=== PATIENT | female | born 1960 | race Caucasian/White ===

== ENCOUNTER 2018-12-19 20:36 | Inpatient (IN) | payer BC, MEDICAID ==
[~2018-12-19] VITALS: Ht 167.6 cm; Wt 54.5 kg
[2018-12-19] MEDS ORDERED: vancomycin/NS 1 GM ADD-VANTAGE 250 ML IV ONE (21:05)
[2018-12-19] MEDS ORDERED: normal saline 1000ML IV soln IVB ONE (21:55)
[2018-12-19 21:56] LABS: PARTIAL THROMBOPLASTIN TIME 28 SECONDS (22-32)
[2018-12-19 22:03] LABS: BASOPHILS # (AUTO) 0.1 X10'3 (0-0.2); BASOPHILS % (AUTO) 0.7 % (0-1); EOSINOPHILS % (AUTO) 0.1 % (0-6); HEMATOCRIT 36.5 % (35.0-45.0); HEMOGLOBIN 11.7 g/dl (12.0-16.0); LYMPHOCYTES # (AUTO) 1.5 X10'3 (1.1-4.8); LYMPHOCYTES % (AUTO) 10.2 % (21-51); MEAN CORPUSCULAR HEMOGLOBIN 27.3 PG (27.0-31.0); MEAN CORPUSCULAR HGB CONC 32.1 g/dL (33.0-36.5); MEAN CORPUSCULAR VOLUME 84.9 FL (78-98); MEAN PLATELET VOLUME 8.4 FL (7.4-10.4); MONOCYTES # (AUTO) 0.7 X10'3 (0-0.9); MONOCYTES % (AUTO) 4.7 % (2-12); NEUTROPHILS # (AUTO) 12.6 X10'3 (1.8-7.7); NEUTROPHILS % (AUTO) 84.3 % (42-75); PLATELET COUNT 238 X10'3 (140-440); RED CELL DISTRIBUTION WIDTH 14.6 % (11.5-14.5)
[2018-12-19 22:09] LABS: ALANINE AMINOTRANSFERASE 22 U/L (12-78); ALBUMIN 2.1 G/DL (3.4-5.0); ALBUMIN/GLOBULIN RATIO 0.4 (1.1-1.5); ALKALINE PHOSPHATASE 97 IU/L (46-116); ANION GAP 13 (8-16); ASPARTATE AMINO TRANSFERASE 23 U/L (10-37); BILIRUBIN,TOTAL 0.3 MG/DL (0.1-1.0); BLOOD UREA NITROGEN 18 MG/DL (7-18); CALCIUM 11.1 MG/DL (8.5-10.1); CHLORIDE 107 MMOL/L (99-107); CREATININE 0.82 MG/DL (0.40-0.90); GLUCOSE 102 MG/DL (70-104); MAGNESIUM 1.5 MG/DL (1.5-2.4); POTASSIUM 4.4 MMOL/L (3.5-5.1); SODIUM 140 MMOL/L (135-145); TOTAL CARBON DIOXIDE 19.6 MMOL/L (24-32); TOTAL PROTEIN 7.8 G/DL (6.4-8.2); eGFR 72 ML/MIN
[2018-12-19 22:38] LABS: CLARITY,URINE CLOUDY (Clear); COLOR,URINE YELLOW (Yellow); GLUCOSE, URINE NEGATIVE (Neg); KETONES,URINE NEGATIVE (Neg); LEUKOCYTE ESTERASE ,URINE LARGE (Neg); NITRITES, URINE POSITIVE (Neg); OCCULT BLOOD,URINE LARGE (Neg); PROTEIN,URINE 30 mg/dl (Neg); UROBILINOGEN,URINE 0.2 E.U/dL (0.2-1.0)
[2018-12-19 22:40] LABS: UA COLLECTION TYPE FOLEY CATH
[2018-12-19 22:49] LABS: BACTERIA,URINE 4+ /HPF (Neg); MUCUS STRANDS NONE SEEN /LPF (Neg); SQUAMOUS EPITHELIAL CELL,UR NONE SEEN /LPF (FEW); WBC,URINE TNTC /HPF (0-4)
[2018-12-19 22:50] LABS: WBC CLUMPS,URINE MODERATE /HPF (NEGATIVE)
[2018-12-19] MEDS ORDERED: LIDOcaine 1% 30ml preserv. free vial IJ STA (23:02)
[2018-12-19] MEDS ORDERED: acetaminophen 325mg tablet PO PRN ×2 (23:40)
[2018-12-19] MEDS ORDERED: HYDROcodone/acetaminophen 10/325mg tab PO PRN (23:40)
[2018-12-19] MEDS ORDERED: normal saline 1000ml 1,000 ML IV SCH (23:40)
[2018-12-19] MEDS ORDERED: HYDROcodone/acetaminophen 5mg/325mg tablet PO PRN (23:40)
[2018-12-19] MEDS ORDERED: ondansetron/PF 4mg/2ml inj IV PRN (23:40)
[2018-12-19] MEDS ORDERED: mag hydrox/Alum hydrox/simeth 30ml oral suspension PO PRN (23:40)
[2018-12-19] MEDS ORDERED: magnesium hydroxide 30ml (MOM) UD suspension PO PRN (23:40)
[2018-12-20] VITALS (22 sets, daily range): BP systolic 71–143; BP diastolic 44–89
--- NOTE | 2018-12-20 00:43 | NUR ---
Patient in room . I have received report from Nikko DOUGLASS and had the opportunity to ask questions and assume patient care.
[2018-12-20] MEDS ORDERED: normal saline 1000ml 1,000 ML IV ONE (01:10)
--- NOTE | 2018-12-20 01:30 | NUR ---
Patient arrived to room 3014B from ER via gurney. All belongings on person. Patient oriented to room, call light, plan of care and all questions answered. 2 RN skin check done and tele monitor #[id number] put on. Vital signs stable with BP of 143/89. Will continue to monitor.
[2018-12-20] MEDS: CefTRIAXone/D5W-Rocephin 1gm 50 ML IV SCH ×2 (01:49→07:21)
[2018-12-20] MEDS ORDERED: LORazepam 2 mg/ml vial IV ONE (03:45)
--- NOTE | 2018-12-20 05:25 | NUR ---
Patient BP 76/48. BP called to Dr. Zamarripa. NS 500cc bolus ordered. Will continue to monitor Addendum: 12/20/18 at 0633 by Lauren Angiuano RN After bolus BP 83/57
[2018-12-20] MEDS ORDERED: normal saline 500ml IV soln 500 ML IV ONE (05:30)
--- NOTE | 2018-12-20 06:00 | NUR ---
Problems reprioritized. Patient report given, questions answered & plan of care reviewed with Shandra DOUGLASS.
--- NOTE | 2018-12-20 06:28 | NUR ---
May AUTOMATION QTP TESTER at bedside due to patient's decreased BP; pt asymptomatic. Patients baseline BP around 80's systolic. Orders for Midodrine. Will continue to monitor.
[2018-12-20] MEDS: midodrine 5mg tablet PO SCH ×2 (07:15→19:14)
[2018-12-20] MEDS: enoxaparin 40mg/0.4ml syringe SUBCUT SCH (07:19)
[2018-12-20 08:01] LABS: BASOPHILS % (AUTO) 0.2 % (0-1); EOSINOPHILS % (AUTO) 0.1 % (0-6); HEMATOCRIT 29.1 % (35.0-45.0); HEMOGLOBIN 9.5 g/dl (12.0-16.0); LYMPHOCYTES # (AUTO) 0.6 X10'3 (1.1-4.8); LYMPHOCYTES % (AUTO) 4.9 % (21-51); MEAN CORPUSCULAR HEMOGLOBIN 27.8 PG (27.0-31.0); MEAN CORPUSCULAR HGB CONC 32.7 g/dL (33.0-36.5); MEAN CORPUSCULAR VOLUME 84.9 FL (78-98); MEAN PLATELET VOLUME 7.7 FL (7.4-10.4); MONOCYTES # (AUTO) 0.5 X10'3 (0-0.9); MONOCYTES % (AUTO) 4.3 % (2-12); NEUTROPHILS # (AUTO) 10.7 X10'3 (1.8-7.7); NEUTROPHILS % (AUTO) 90.5 % (42-75); PLATELET COUNT 191 X10'3 (140-440); RED BLOOD COUNT 3.43 X10'6 (4.20-5.60); RED CELL DISTRIBUTION WIDTH 14.7 % (11.5-14.5); WHITE BLOOD COUNT 11.8 X10'3 (4.5-11.0)
[2018-12-20 08:09] LABS: ANION GAP 13 (8-16); CHLORIDE 117 MMOL/L (99-107); SODIUM 151 MMOL/L (135-145); TOTAL CARBON DIOXIDE 20.7 MMOL/L (24-32)
[2018-12-20 08:12] LABS: ALBUMIN 1.7 G/DL (3.4-5.0); BLOOD UREA NITROGEN 12 MG/DL (7-18); BUN/CREATININE RATIO 21.8 (6.6-38.0); CALCIUM 8.5 MG/DL (8.5-10.1); CREATININE 0.55 MG/DL (0.40-0.90); GLUCOSE 88 MG/DL (70-104); eGFR > 90 ML/MIN
[2018-12-20 08:19] LABS: POTASSIUM 2.3 MMOL/L (3.5-5.1)
--- NOTE | 2018-12-20 08:28 | NUR ---
Jennifer Simeon for K2.3 this AM. No PRN Replacements ordered. Addendum: 12/20/18 at 0856 by Shandra Staples RN Dr. Simeon returned call. RN ordered potassium replacement per MD request.
[2018-12-20] MEDS ORDERED: potassium Cl 20 mEq SR tablet PO PRN ×2 (08:50)
[2018-12-20] MEDS ORDERED: magnesium 4gm in 100ml NS 100 ML IV PRN (08:50)
[2018-12-20 09:04] LABS: MAGNESIUM 1.2 MG/DL (1.5-2.4)
[2018-12-20] MEDS: sodium chloride 0.45% 1,000 ML IV SCH ×2 (09:44→19:14)
[2018-12-20] MEDS: potassium CL 10mEq/100ml bag 100 ML IV PRN ×5 (09:47→14:00)
[2018-12-20] MEDS: magnesium Cl slow-release 64mg tablet PO PRN (11:52)
--- NOTE | 2018-12-20 13:19 | NUR ---
Pt admit with sepsis and UTI with low Riccardo of 10. Per physical assessment pt with skin tear to left soriano and PU to sacrum. Pt currently on regular diet documented to have refused breakfast. Pt seen at bedside reports low appetite. Pt provided with written and verbal protein education with RD contact information. Food preferences obtained and d/w dietary, see below. Pt declined additional protein at this time. Pt with colostomy with LBM 8/10. Will continue to follow. Recommendations: 1) Continue with regular diet 2) Monitor need for ONS 3) [place] food preferences: No beef, turkey, pork; chicken only; no scrambled eggs, hard boiled or omelette only 4) Encourage PO intake 5) Wt per rx Addendum: 12/20/18 at [address] Amended: Links added.
[2018-12-20 15:33] LABS: ALBUMIN 1.7 G/DL (3.4-5.0); BLOOD UREA NITROGEN 11 MG/DL (7-18); BUN/CREATININE RATIO 16.2 (6.6-38.0); CALCIUM 7.7 MG/DL (8.5-10.1); CHLORIDE 108 MMOL/L (99-107); CREATININE 0.68 MG/DL (0.40-0.90); GLUCOSE 77 MG/DL (70-104); POTASSIUM 3.8 MMOL/L (3.5-5.1); TOTAL CARBON DIOXIDE 19.6 MMOL/L (24-32); eGFR 89 ML/MIN
[2018-12-20 15:49] LABS: ANION GAP 12 (8-16); SODIUM 140 MMOL/L (135-145)
--- NOTE | 2018-12-20 15:59 | NUR ---
PAGER ID: [phone] MESSAGE: [id number] Juni. K 3.8 after 50mEq IV K replacement. Protocol is to administer 30 more mEq, please advise. Shandra Arshad Addendum: 12/20/18 at 1709 by Shandra Staples RN [id number] - no response by as of yet as to if he wants to continue with with K replacement for K level 3.8.
--- NOTE | 2018-12-20 17:16 | NUR ---
BP low this AM at shift change with SBP 70-80's and MAP <60. Only sx fatigue. May, MONORAIL CAR OPERATOR at bedside to see pt. Midodrine ordered and RN told to just watch pt. Pt placed on mobile. BP increased after Midodrine administered. SBP ranging >100 throughout the day. Na 151 this AM. s/p several liters of NS given since admission. IVF changed to 1/2 NS. Na later resulted 140. K2.3 this AM. Replaced with total of 50 mEq IV then checked K and level was 3.8. Protocol states to give [address] Simeon of current level and asked if he wanted to go ahead and administer the rest of the K. Currently awaiting response. Mag 1.2 this AM, replaced with PO Mag. Poor appetite noted. Pt is a quad, turned in bed q2h.
--- NOTE | 2018-12-20 18:15 | NUR ---
Patient in room PCU 3014. I have received report from Shandra DOUGLASS and had the opportunity to ask questions and assume patient care.
[2018-12-20] MEDS: lactobacillus rhamnosus 10,000 MMU CELLS/CAPSULE PO SCH (19:14)
[2018-12-20] MEDS: loperamide 2mg capsule PO PRN (21:15)
[2018-12-21 03:00] VITALS: BP 117/67
[2018-12-21] MEDS: sodium chloride 0.45% 1,000 ML IV SCH (05:21)
[2018-12-21 06:00] LABS: ALBUMIN 1.6 G/DL (3.4-5.0); ANION GAP 11 (8-16); BLOOD UREA NITROGEN 13 MG/DL (7-18); BUN/CREATININE RATIO 21.7 (6.6-38.0); CALCIUM 7.5 MG/DL (8.5-10.1); CHLORIDE 110 MMOL/L (99-107); GLUCOSE 72 MG/DL (70-104); SODIUM 141 MMOL/L (135-145); TOTAL CARBON DIOXIDE 19.6 MMOL/L (24-32); eGFR > 90 ML/MIN
[2018-12-21 06:03] LABS: POTASSIUM 2.7 MMOL/L (3.5-5.1)
[2018-12-21 06:11] LABS: BASOPHILS % (AUTO) 0.4 % (0-1); EOSINOPHILS # (AUTO) 0.2 X10'3 (0-0.9); HEMATOCRIT 28.7 % (35.0-45.0); HEMOGLOBIN 9.5 g/dl (12.0-16.0); LYMPHOCYTES # (AUTO) 1.5 X10'3 (1.1-4.8); LYMPHOCYTES % (AUTO) 16.7 % (21-51); MEAN CORPUSCULAR HGB CONC 33.2 g/dL (33.0-36.5); MEAN CORPUSCULAR VOLUME 84.5 FL (78-98); MEAN PLATELET VOLUME 8.2 FL (7.4-10.4); MONOCYTES # (AUTO) 0.7 X10'3 (0-0.9); MONOCYTES % (AUTO) 7.3 % (2-12); NEUTROPHILS # (AUTO) 6.6 X10'3 (1.8-7.7); NEUTROPHILS % (AUTO) 73.6 % (42-75); PLATELET COUNT 203 X10'3 (140-440); RED CELL DISTRIBUTION WIDTH 14.9 % (11.5-14.5)
--- NOTE | 2018-12-21 06:20 | NUR ---
Problems reprioritized. Patient report given, questions answered & plan of care reviewed with Elke DOUGLASS.
[2018-12-21 07:00] VITALS: BP 118/63
[2018-12-21] MEDS: CefTRIAXone/D5W-Rocephin 1gm 50 ML IV SCH (07:42)
[2018-12-21] MEDS: midodrine 5mg tablet PO SCH ×2 (07:42→19:13)
[2018-12-21] MEDS: enoxaparin 40mg/0.4ml syringe SUBCUT SCH (07:42)
[2018-12-21] MEDS: lactobacillus rhamnosus 10,000 MMU CELLS/CAPSULE PO SCH ×2 (07:42→19:13)
[2018-12-21] MEDS: potassium CL 10mEq/100ml bag 100 ML IV PRN ×8 (07:42→21:59)
[2018-12-21] MEDS: JUVEN Shake w/Arg/Glut/Ca2+Bmb (Juven 19.3gm) pkt 240ml PO SCH ×3 (08:34→18:00)
[2018-12-21] MEDS ORDERED: POTA20TA19 PO (12:18)
[2018-12-21] MEDS ORDERED: SERT50TA PO (12:19)
[2018-12-21] MEDS: magnesium Cl slow-release 64mg tablet PO PRN ×2 (12:27→19:21)
[2018-12-21] MEDS ORDERED: sertraline 50mg tablet PO ONE (12:55)
[2018-12-21] MEDS ORDERED: potassium Cl 20 mEq SR tablet PO ONE (12:55)
[2018-12-21 13:00] VITALS: BP 114/75
[2018-12-21 15:00] VITALS: BP 128/82
[2018-12-21] MEDS ORDERED: MULT-933 PO (17:33)
[2018-12-21] MEDS ORDERED: ASCO500C15 PO (17:33)
[2018-12-21] MEDS ORDERED: CHOL100046 PO (17:33)
--- NOTE | 2018-12-21 18:00 | NUR ---
Patient in room PCU 3014. I have received report from Elke DOUGLASS and had the opportunity to ask questions and assume patient care.
--- NOTE | 2018-12-21 18:12 | NUR ---
Problems reprioritized. Patient report given, questions answered & plan of care reviewed with Ofe DOUGLASS. Patient stable at transfer of care.
--- NOTE | 2018-12-21 18:47 | NUR ---
Patient in room PCU 3014. I have received report from Elke DOUGLASS and had the opportunity to ask questions and assume patient care.
[2018-12-21 19:00] VITALS: BP 137/79
[2018-12-21] MEDS: loperamide 2mg capsule PO PRN (19:32)
[2018-12-21 22:00] VITALS: BP 140/93
[2018-12-22 03:00] VITALS: BP 108/65
--- NOTE | 2018-12-22 04:30 | NUR ---
[place] documentation: I have reviewed and agree with all interventions, assessments performed and documented by Margarita DOUGLASS. [place] Medication Administration: For this medication-pass time frame, all medication were reviewed, dispensed, administered and documented per hospital policy by Margarita DOUGLASS.
[2018-12-22 05:39] LABS: ALBUMIN 1.8 G/DL (3.4-5.0); ANION GAP 13 (8-16); BASOPHILS % (AUTO) 0.4 % (0-1); BLOOD UREA NITROGEN 6 MG/DL (7-18); BUN/CREATININE RATIO 11.3 (6.6-38.0); CALCIUM 7.7 MG/DL (8.5-10.1); CHLORIDE 111 MMOL/L (99-107); CREATININE 0.53 MG/DL (0.40-0.90); EOSINOPHILS # (AUTO) 0.4 X10'3 (0-0.9); EOSINOPHILS % (AUTO) 4.1 % (0-6); GLUCOSE 70 MG/DL (70-104); HEMATOCRIT 31.1 % (35.0-45.0); HEMOGLOBIN 10.4 g/dl (12.0-16.0); LYMPHOCYTES # (AUTO) 1.3 X10'3 (1.1-4.8); LYMPHOCYTES % (AUTO) 14.3 % (21-51); MAGNESIUM 1.2 MG/DL (1.5-2.4); MEAN CORPUSCULAR HEMOGLOBIN 28.1 PG (27.0-31.0); MEAN CORPUSCULAR HGB CONC 33.6 g/dL (33.0-36.5); MEAN CORPUSCULAR VOLUME 83.7 FL (78-98); MONOCYTES # (AUTO) 0.6 X10'3 (0-0.9); MONOCYTES % (AUTO) 6.4 % (2-12); NEUTROPHILS # (AUTO) 6.7 X10'3 (1.8-7.7); NEUTROPHILS % (AUTO) 74.8 % (42-75); PLATELET COUNT 253 X10'3 (140-440); POTASSIUM 3.7 MMOL/L (3.5-5.1); RED BLOOD COUNT 3.71 X10'6 (4.20-5.60); RED CELL DISTRIBUTION WIDTH 14.6 % (11.5-14.5); SODIUM 143 MMOL/L (135-145); TOTAL CARBON DIOXIDE 18.8 MMOL/L (24-32); eGFR > 90 ML/MIN
[2018-12-22 06:00] VITALS: BP 129/79
--- NOTE | 2018-12-22 06:06 | NUR ---
Problems reprioritized. Patient report given, questions answered & plan of care reviewed with Elke DOUGLASS.
--- NOTE | 2018-12-22 06:11 | NUR ---
Problems reprioritized. Patient report given, questions answered & plan of care reviewed with Elke DOUGLASS.
[2018-12-22] MEDS: CefTRIAXone/D5W-Rocephin 1gm 50 ML IV SCH (07:34)
[2018-12-22] MEDS: JUVEN Shake w/Arg/Glut/Ca2+Bmb (Juven 19.3gm) pkt 240ml PO SCH ×3 (07:35→18:00)
[2018-12-22] MEDS: magnesium Cl slow-release 64mg tablet PO PRN ×2 (07:35→19:11)
[2018-12-22] MEDS: sertraline 50mg tablet PO SCH (07:35)
[2018-12-22] MEDS: midodrine 5mg tablet PO SCH ×2 (07:35→19:12)
[2018-12-22] MEDS: lactobacillus rhamnosus 10,000 MMU CELLS/CAPSULE PO SCH ×2 (07:35→19:12)
[2018-12-22] MEDS: potassium Cl 20 mEq SR tablet PO SCH (07:35)
[2018-12-22] MEDS: enoxaparin 40mg/0.4ml syringe SUBCUT SCH (07:36)
--- NOTE | 2018-12-22 10:49 | NUR ---
PRESSURE ULCER EDUCATION: DEFINITION: A pressure ulcer is an area of skin that breaks down when you stay in one position too long. The constant pressure against the skin reduces the blood flow to that area and the affected tissue dies. CAUSES: "Being bedridden or in a wheelchair "Fragile skin "Having a chronic condition, such as diabetes or vascular disease "Inability to move certain parts of your body without assistance "Older age "Incontinence of urine or stool SYMPTOMS: "A reddened area that DOES NOT turn white when pressed on - this can be the beginning of a pressure ulcer "A blister, deep sore or a crater - these can be advanced pressure ulcers FIRST AID: "Relieve the pressure on this area "Keep the area clean and dry "Call your primary doctor if you see any of the above symptoms "DO NOT massage the area "DO NOT use a donut shaped or ring shaped pillow- these actually interfere with the blood flow and cause complications PREVENTION: "Check for pressure ulcers everyday "Change position at least every two hours to relieve pressure "Use items that help relieve pressure- pillows, sheepskin, foam padding, and powders. "Keep skin clean and dry "Eat healthy well balanced meals "Exercise daily IF YOU SEE ANY OF THESE SYMPTOMS WHILE IN THE HOSPITAL - TELL YOUR NURSE IMMEDIATELY. IF YOU SEE ANY OF THESE SYMPTOMS WHILE AT HOME OR HAVE ANY QUESTIONS OR CONCERNS ABOUT PRESSURE ULCERS - CALL YOUR PRIMARY DOCTOR IMMEDIATELY. Addendum: 12/22/18 at 1050 by Giorgio Fonseca RN Amended: Links added.
[2018-12-22 10:54] VITALS: BP 141/81
--- NOTE | 2018-12-22 14:24 | NUR ---
Wound consult: Pt has sacral PU. Already addressed see prior RD note below. Addendum: 12/22/18 at [address] Amended: Links added.
[2018-12-22 15:28] VITALS: BP 132/81
--- NOTE | 2018-12-22 15:30 | NUR ---
Patient is refusing a bed bath, catheter care and betsy care. Patient started crying when encouraged to allow personal hygiene. Will continue to monitor.
--- NOTE | 2018-12-22 18:00 | NUR ---
Patient in room PCU 3014. I have received report from Elke DOUGLASS and had the opportunity to ask questions and assume patient care.
--- NOTE | 2018-12-22 18:13 | NUR ---
Problems reprioritized. Patient report given, questions answered & plan of care reviewed with Ofe DOUGLASS. Patient stable at transfer of care.
--- NOTE | 2018-12-22 18:15 | NUR ---
Patient in room PCU 3014. I have received report from Elke DOUGLASS and had the opportunity to ask questions and assume patient care.
[2018-12-22 19:00] VITALS: BP 109/74
[2018-12-22] MEDS: loperamide 2mg capsule PO PRN (19:12)
[2018-12-22 22:00] VITALS: BP 139/82
[2018-12-23 02:00] VITALS: BP 117/69
[2018-12-23 06:06] LABS: BASOPHILS % (AUTO) 0.5 % (0-1); EOSINOPHILS # (AUTO) 0.5 X10'3 (0-0.9); HEMATOCRIT 31.6 % (35.0-45.0); HEMOGLOBIN 10.4 g/dl (12.0-16.0); LYMPHOCYTES # (AUTO) 1.4 X10'3 (1.1-4.8); LYMPHOCYTES % (AUTO) 17.3 % (21-51); MEAN CORPUSCULAR HEMOGLOBIN 27.8 PG (27.0-31.0); MEAN CORPUSCULAR HGB CONC 32.9 g/dL (33.0-36.5); MEAN CORPUSCULAR VOLUME 84.5 FL (78-98); MEAN PLATELET VOLUME 8.1 FL (7.4-10.4); MONOCYTES # (AUTO) 0.6 X10'3 (0-0.9); NEUTROPHILS # (AUTO) 5.8 X10'3 (1.8-7.7); NEUTROPHILS % (AUTO) 69.2 % (42-75); PLATELET COUNT 297 X10'3 (140-440); RED BLOOD COUNT 3.75 X10'6 (4.20-5.60); WHITE BLOOD COUNT 8.4 X10'3 (4.5-11.0)
--- NOTE | 2018-12-23 06:08 | NUR ---
Problems reprioritized. Patient report given, questions answered & plan of care reviewed with Elke DOUGLASS.
[2018-12-23 06:20] LABS: ALBUMIN 1.8 G/DL (3.4-5.0); ANION GAP 14 (8-16); BLOOD UREA NITROGEN 12 MG/DL (7-18); BUN/CREATININE RATIO 21.8 (6.6-38.0); CALCIUM 7.9 MG/DL (8.5-10.1); CHLORIDE 111 MMOL/L (99-107); CREATININE 0.55 MG/DL (0.40-0.90); GLUCOSE 74 MG/DL (70-104); MAGNESIUM 1.3 MG/DL (1.5-2.4); POTASSIUM 3.2 MMOL/L (3.5-5.1); SODIUM 144 MMOL/L (135-145); TOTAL CARBON DIOXIDE 19.1 MMOL/L (24-32); eGFR > 90 ML/MIN
--- NOTE | 2018-12-23 06:20 | NUR ---
Patient in room PCU 3012. I have received report from Ofe DOUGLASS and had the opportunity to ask questions and assume patient care.
--- NOTE | 2018-12-23 06:30 | NUR ---
Patient in room PCU 3014. I have received report from Ofe DOUGLASS and Daisy DOUGLASS and had the opportunity to ask questions and assume patient care.
[2018-12-23 07:13] VITALS: BP 124/68
[2018-12-23] MEDS: JUVEN Shake w/Arg/Glut/Ca2+Bmb (Juven 19.3gm) pkt 240ml PO SCH (08:00)
[2018-12-23] MEDS: midodrine 5mg tablet PO SCH (08:04)
[2018-12-23] MEDS: CefTRIAXone/D5W-Rocephin 1gm 50 ML IV SCH (08:04)
[2018-12-23] MEDS: potassium Cl 20 mEq SR tablet PO SCH (08:05)
[2018-12-23] MEDS: sertraline 50mg tablet PO SCH (08:05)
[2018-12-23] MEDS: enoxaparin 40mg/0.4ml syringe SUBCUT SCH (08:05)
[2018-12-23] MEDS: lactobacillus rhamnosus 10,000 MMU CELLS/CAPSULE PO SCH (08:05)
--- NOTE | 2018-12-23 11:45 | NUR ---
Stable for transfer per MD orders. Report called to Coretta, receiving nurse from [facility], at 10:08am; all questions and inquiries answered. Intrajugular CVC discontinued; cannula intact, tolerated well by patient. Telemetry monitoring discontinued. All belongings sent with patient. Transferred to [facility] via gurney accompanied by [facility] personnel.
--- NOTE | 2018-12-23 12:16 | NUR ---
[place] documentation: I have reviewed and agree with interventions, assessments performed and documented by Urbano DOUGLASS. [place] Medication Administration: For this medication-pass time frame,medication were reviewed, dispensed, administered and documented per hospital policy by .
== END 2018-12-23 11:40 | DRG 720 ==
LOC: ER 20:39 → PCU 3S 12-20 01:26 → CMPBEDREQ 12-22 19:44
PROVIDERS: ADMIT Hospitalist; ATTEND Family Medicine
PROC: 02HV33Z Insertion of Infusion Device into Superior Vena Cava, Percutaneous Approach (ICD-10-PCS; principal; 2018-12-19)
DX: A41.9 Sepsis, unspecified organism (principal); R65.21 Severe sepsis with septic shock; G82.50 Quadriplegia, unspecified; E43 Unspecified severe protein-calorie malnutrition; L89.154 Pressure ulcer of sacral region, stage 4; E87.0 Hyperosmolality and hypernatremia; E86.0 Dehydration; B95.2 Enterococcus as the cause of diseases classified elsewhere; E83.42 Hypomagnesemia; F32.9 Major depressive disorder, single episode, unspecified; E87.6 Hypokalemia; F20.9 Schizophrenia, unspecified; N39.0 Urinary tract infection, site not specified; Z93.3 Colostomy status; Z68.1 Body mass index [BMI] 19.9 or less, adult; Z88.8 Allergy status to other drugs, medicaments and biological substances; Z79.899 Other long term (current) drug therapy
CPT/HCPCS: 36415; 36556; 71045; 80048; 80053; 81001; 83605; 83735; 84145; 85025; 85610; 85730; 87040; 87077; 87081; 87088; 87186; 92508; 92616; 93005; 96365; 99285; G0378; J0696; J1650; J2001; J3370; J3480; J7030; J7040